=== PATIENT | female | born 1940 | race Caucasian/White ===

== ENCOUNTER 2021-03-24 13:05 | Outpatient (CLI) | payer MEDICARE, SELFPAY ==
[2021-03-24 14:03] LABS: SARS-CoV-2 Ag Negative (Negative)
== END 2021-03-24 13:06 | disposition home or self-care (01) ==
PROVIDERS: PCP Internal Medicine; Visit Provider Physician Assistant Medical
DX: J32.9 Chronic sinusitis, unspecified (principal); Z20.822 Contact with and (suspected) exposure to COVID-19
CPT/HCPCS: 87426; C9803

== ENCOUNTER 2023-06-28 12:15 | Outpatient (RCR) | payer MEDICARE, SELFPAY ==
--- NOTE | 2023-05-23 16:52 | PTOPEVAL1 ---
Assessment and note entered by Ana Ramirez, PT Evaluation Information Assessment Status Evaluation Diagnosis right total hip replacement anterior approach Therapy condition pain in right hip, weakness, abnormality gait and mobility Onset 04/18/23 Subjective Information Pt went home and the next day went to get up and passed out. Ended up having a leg bloood clot. Hospitalized [facility] Saturday to Saturday. Had home health nursing and physical therpay. Has been discharged from home health. Home health PT came out and stated Pt may need outpatient therapy for full mobility with her leg Each week pain is a lot less. This week is more like an Ache and very little pain. Siting or laying will resolve issue Has been doing one step at a time and this morning forgot and tried to go up with the right leg and felt weak had to use the bar When is prepared to walk a distance will use a cane when she doesn't forget it. Reported Pain Level Pain Score 1: Self Report Assessment PT Clinical Summary Pt presents s/p right total hip replacement date of surgery 04/18/23. Pt demos decreased functional range, strenght, endurance, abnormalities of gait and stair mobility as well as continued pain with increased activities. Thus patient will benefit from physical therapy to address deficits and return to PLOF. Plan of Care Interventions Electrical Stimulation,Gait Training,Intermittent Compression,Manual Therapy,Neuro Re-education, Therapeutic Activities,Therapeutic Exercise Other Interventions cryotherapy PT Services Indicated Yes Treatment Frequency and 1-2x ewekly x 4 weeks Duration These treatments will address the objective and functional deficits as defined above. The patient will be advanced safely and appropriately in order for the patient to progress towards his/her prior level of function. Additional exercises will be introduced and as well as a comprehensive home exercise program upon discharge, if needed, ?to ensure carryover of functional gains achieved in the clinic. This treatment plan has been reviewed and agreement upon by the patient.
--- NOTE | 2023-05-23 16:53 | OPREHPOC ---
Outpatient Therapy Plan of Care This is a Multidisciplinary Plan of Care that may contain components documented by all disciplines (PT, OT, and ST.) PT Problem 1 PT Problem #1 Knowledge Deficit PT Goal 1 Goal Pt will be independent in HEP Pt will verbalize understanding of diagnosis and prognosis Target Visit 8 PT Problem 2 PT Problem #2 Pain PT Goal 1 Goal Pt will report greatest pain level at 3/10 or less to improve ADLs Target Visit 8 PT Goal 2 Goal Pt will report resolution of pain to return to PLOF Target Visit 16 PT Problem 3 PT Problem #3 Impaired Gait PT Goal 1 Goal Pt will demo ability to walk 5 minutes without increased pain, with normal marybel and equal step length bilat Target Visit 8 PT Goal 2 Goal Pt will demo ability to ascend/descend steps in reciprocal pattern and railings for balance only Target Visit 16 PT Problem 4 PT Problem #4 Impaired Strength PT Goal 1 Goal Pt will demo strength of 3/5 in gluteus medius Target Visit 8 PT Goal 2 Goal Pt will demo strength of 4/5 or greater in gluteus marta Target Visit 16
--- NOTE | 2023-05-29 14:41 | PCPTNOTE ---
Patient did not show up for scheduled appointment this date; called patient and left message for reminder of appointment.
--- NOTE | 2023-06-24 08:32 | PCPTNOTE ---
Addendum entered by Ana Ramirez, PT 06/24/23 08:34: appointment of 06/21/23 Original Note: Therapy department called patient and cancelled scheduled appointment this date due to staffing shortage.
--- NOTE | 2023-06-28 16:22 | PTOPPROG ---
Assessment and note entered by Ana Ramirez, PT Evaluation Information Assessment Status Progress Diagnosis right total hip replacement anterior approach, weakness, pain in right hip, abnormality of gait and mobility Onset 04/18/23 Subjective Information Pt reports top of legs in the hip creases is what bothers her with walking. Was shopping with her granddaughter and was sitting whenever she could. Doesn't know her restrictions, taking care of her bends and moves however she needs to. Was sitting on the floor the other day with leg extended but when went to get up felt pain in the muscle. Hip doesn't hurt as much as low back at times. Mostly the front muscle in the right hip Has group home insurance that she is talking to on Jul 15 for assist in taking care of Relief after last session lasted a couple days Assessment PT Clinical Summary Pt has been attending therapy somewhat inconsistently due to her family's needs. Reports she has been able to move around better, but still has pain in front hip muscle especially with getting up from the floor recently. Gait has improved, strength has improved, but cont to demo pelvic alignment deficit and what appears to be corresponding muscle pain. Thus patient will benefit from continued therapy to address deficits , improve pain, and return to PLOF. Plan of Care Interventions Electrical Stimulation,Gait Training,Intermittent Compression,Manual Therapy,Neuro Re-education, Therapeutic Activities,Therapeutic Exercise Other Interventions cryotherapy PT Services Indicated Yes Treatment Frequency and 1-2x weekly x 4 weeks. Duration These treatments will address the objective and functional deficits as defined above. The patient will be advanced safely and appropriately in order for the patient to progress towards his/her prior level of function. Additional exercises will be introduced and as well as a comprehensive home exercise program upon discharge, if needed, ?to ensure carryover of functional gains achieved in the clinic. This treatment plan has been reviewed and agreement upon by the patient.
--- NOTE | 2023-07-18 11:57 | PTOPDC ---
Assessment and note entered by Ana Ramirez, PT Evaluation Information Assessment Status Discharge - Pt Not Presen Diagnosis right total hip replacement anterior approach Onset 04/18/23 Assessment PT Clinical Summary Unfortunately patient called and cancelled all her remaining appointments due to her 's health status. Should she be able to return to therapy, we would be happy to reevaluate her and continue with her progress with an updated prescription. Thus we are closing her chart and placing her in discharge status.
== END 2023-07-19 11:26 | disposition home or self-care (01) ==
LOC: ANHHIPT 12:15
PROVIDERS: PCP Physician Assistant Medical; Visit Provider Physician Assistant Medical
DX: R26.89 Other abnormalities of gait and mobility (principal); Z96.641 Presence of right artificial hip joint
CPT/HCPCS: 97014; 97110; 97140; 97162; 97750; G0283